=== PATIENT | female | born 1985 | race African-American/Black ===

== ENCOUNTER 2023-06-24 10:29 | Inpatient (IN) | payer OTHER ==
[~2023-06-24] VITALS: Ht 157.5 cm; Wt 119.0 kg
[2023-06-24] MEDS: CLINDAMYCIN 600MG IV 50 ML IV ONE (12:45)
[2023-06-24] MEDS: SODIUM CHLORIDE 0.9% 1,000 ML IV ONE (12:45)
[2023-06-24] MEDS: cefTRIAXone 1GM/50ML D5W 50 ML IV ONE (12:45)
[2023-06-24 13:25] LABS: Basophils # (auto) 0.1 10 ^3/uL (0-0.2); Eosinophils # (auto) 0.2 10 ^3/uL (0-0.8); Hemoglobin 8.5 g/dL (12.2-16.2); Lymphocytes # (auto) 2.3 10 ^3/uL (0.4-5.4); Mean Corpuscular Volume 68.2 fL (80.0-100.0); Nucleated Red Blood Cells % 0.1 %
[2023-06-24 13:27] LABS: Basophils % (auto) 0.7 % (0.0-2.0); Chloride 105 mmol/L (98-107); Eosinophils % (auto) 1.7 % (0.0-7.0); Hematocrit 27.9 % (36.0-46.0); Lymphocytes % (auto) 24.8 % (10.0-50.0); Mean Corpuscular Hemoglobin 20.7 pg (28.0-32.0); Mean Corpuscular Hgb Conc. 30.4 g/dL (32.0-36.0); Monocytes # (auto) 0.7 10 ^3/uL (0-1.3); Monocytes % (auto) 7.3 % (0.0-12.0); Neutrophils # (auto) 6.1 10 ^3/uL (1.6-8.6); Neutrophils % (auto) 65.5 % (37.0-80.0); Potassium 4.4 mmol/L (3.5-5.1); Red Blood Cells 4.09 10^6/uL (4.0-5.20); Red Cell Distribution Width 19.5 % (11.8-14.3); Sodium 136 mmol/L (136-145); White Blood Cell 9.3 10^3/uL (4.4-10.8)
[2023-06-24 13:28] LABS: Anion Gap 3 (5-15); Carbon Dioxide 28 mmol/L (20-30)
[2023-06-24 13:29] LABS: Calcium 9.7 mg/dL (8.5-10.1)
[2023-06-24 13:33] LABS: Glucose 109 mg/dL (74-106)
[2023-06-24 13:34] LABS: BUN/Creatinine Ratio 16.2 (10.0-20.0); Blood Urea Nitrogen 12 mg/dL (9-23)
[2023-06-24] MEDS: SODIUM CHLORIDE 0.9% 1,000 ML IV SCH (14:15)
[2023-06-24] MEDS ORDERED: ACETAMINOPHEN 325 MG TAB PO PRN (14:15)
[2023-06-24] MEDS ORDERED: IBUP-1455 PO (14:19)
[2023-06-24 15:18] LABS: Triglycerides 133 mg/dL (< 150)
[2023-06-24 15:19] LABS: LDL Cholesterol 93 mg/dL (< 100)
[2023-06-24 15:20] LABS: Cholesterol 142 mg/dL (< 200); HDL Cholesterol 34 mg/dL (40-59)
[2023-06-24 19:45] VITALS: PULSE 79; RESP 19; O2SAT 96
[2023-06-24] MEDS ORDERED: BACDST PO (22:28)
[2023-06-24] MEDS ORDERED: AUG875T PO (22:28)
[2023-06-24 22:29] VITALS: RESP 16
[2023-06-24] MEDS: CLINDAMYCIN 600MG IV 50 ML IV SCH (22:48)
[2023-06-24] MEDS: ASCORBIC ACID 500 MG TAB PO SCH (22:48)
[2023-06-24] MEDS: HYDROcodone-ACET 5/325MG TAB PO PRN (23:51)
[2023-06-25 01:00] VITALS: PULSE 77; RESP 18; TEMP 98.4; O2SAT 94
[2023-06-25 05:00] VITALS: BP 143/83; PULSE 70; RESP 16; TEMP 98.2; O2SAT 94
[2023-06-25 07:28] LABS: Eosinophils # (auto) 0.2 10 ^3/uL (0-0.8); Lymphocytes # (auto) 2.6 10 ^3/uL (0.4-5.4); Neutrophils # (auto) 5.1 10 ^3/uL (1.6-8.6); White Blood Cell 8.6 10^3/uL (4.4-10.8)
[2023-06-25 07:30] LABS: Basophils # (auto) 0 10 ^3/uL (0-0.2); Basophils % (auto) 0.5 % (0.0-2.0); Eosinophils % (auto) 2.2 % (0.0-7.0); Hematocrit 25.7 % (36.0-46.0); Hemoglobin 7.7 g/dL (12.2-16.2); Lymphocytes % (auto) 30.7 % (10.0-50.0); Mean Corpuscular Hemoglobin 20.6 pg (28.0-32.0); Mean Corpuscular Hgb Conc. 30.1 g/dL (32.0-36.0); Mean Corpuscular Volume 68.5 fL (80.0-100.0); Monocytes # (auto) 0.5 10 ^3/uL (0-1.3); Monocytes % (auto) 6.4 % (0.0-12.0); Neutrophils % (auto) 60.2 % (37.0-80.0); Red Blood Cells 3.76 10^6/uL (4.0-5.20); Red Cell Distribution Width 18.9 % (11.8-14.3)
[2023-06-25 07:43] LABS: Alkaline Phosphatase 87 U/L (46-116); Anion Gap 7 (5-15); BUN/Creatinine Ratio 18.7 (10.0-20.0); Blood Urea Nitrogen 14 mg/dL (9-23); Calcium 9.3 mg/dL (8.5-10.1); Carbon Dioxide 24 mmol/L (20-30); Chloride 106 mmol/L (98-107); Glucose 95 mg/dL (74-106); Potassium 4.2 mmol/L (3.5-5.1); Sodium 137 mmol/L (136-145)
[2023-06-25 07:44] LABS: Albumin 3.7 g/dL (3.2-4.8); Aspartate Aminotransferase 12 U/L (13-40); Bilirubin, Total 0.2 mg/dL (0.2-1.0); Total Protein 6.7 g/dL (5.7-8.2)
[2023-06-25 07:52] LABS: Alanine Aminotransferase < 9 U/L (7-40)
[2023-06-25 08:33] LABS: Hypochromia Marked; Platelet Estimate Increased
[2023-06-25 09:00] VITALS: BP 145/93; PULSE 69; RESP 18; TEMP 98.3; O2SAT 97
[2023-06-25] MEDS: cefTRIAXone 1GM/50ML D5W 50 ML IV SCH (09:49)
[2023-06-25] MEDS: ZINC SULFATE 220mg CAP or TAB PO SCH (09:49)
[2023-06-25] MEDS: MULTIPLE VITAMIN TAB PO SCH (09:49)
[2023-06-25] MEDS: ENOXAPARIN SOD 40 MG/0.4 ML SYRINGE SC SCH (09:49)
[2023-06-25 13:00] VITALS: BP 146/71; PULSE 70; RESP 18; TEMP 98; O2SAT 95
[2023-06-25 17:00] VITALS: BP 125/80; PULSE 70; RESP 18; TEMP 98.2; O2SAT 96
[2023-06-25 21:00] VITALS: BP 138/70; PULSE 76; RESP 18; TEMP 98.4; O2SAT 96
[2023-06-26 05:00] VITALS: BP 122/68; PULSE 67; RESP 18; TEMP 98.8; O2SAT 98
[2023-06-26 09:00] VITALS: BP 126/55; PULSE 71; RESP 16; TEMP 98; O2SAT 95
[2023-06-26] MEDS ORDERED: BACDST PO (12:25)
[2023-06-26 13:00] VITALS: BP 118/59; PULSE 86; RESP 16; TEMP 98.6; O2SAT 97
[2023-06-26 16:39] VITALS: BP 118/59; PULSE 91; RESP 16; TEMP 37; O2SAT 97
== END 2023-06-26 17:45 | disposition home or self-care (01) | DRG 383 ==
LOC: ER 10:29 → OVERFLOW 14:18 → WEST WING 22:05
PROVIDERS: ADMIT Internal Medicine Geriatric Medicine; ATTEND Internal Medicine Geriatric Medicine
DX: L03.311 Cellulitis of abdominal wall (principal); D50.9 Iron deficiency anemia, unspecified; E66.01 Morbid (severe) obesity due to excess calories; E11.9 Type 2 diabetes mellitus without complications; I10 Essential (primary) hypertension; L02.211 Cutaneous abscess of abdominal wall; L02.221 Furuncle of abdominal wall; Z79.4 Long term (current) use of insulin; Z68.42 Body mass index [BMI] 45.0-49.9, adult; Z82.49 Family history of ischemic heart disease and other diseases of the circulatory system
CPT/HCPCS: 36415; 80048; 80053; 80061; 83036; 83605; 84443; 85025; 87040; 87081; 87205; G0378; J3490

== ENCOUNTER 2023-07-29 11:10 | Emergency (ER) | payer OTHER ==
[~2023-07-29] VITALS: Ht 172.7 cm; Wt 122.3 kg
[~2023-07-29 11:10] MED LIST: BACDST PO; IBUP-1455 PO
[2023-07-29 12:30] VITALS: BP 154/93; PULSE 73; RESP 18; TEMP 98.7; O2SAT 98
[2023-07-29 13:36] LABS: Urine Bacteria None Seen /hpf (None Seen)
[2023-07-29 13:53] LABS: Chloride 108 mmol/L (98-107); Sodium 140 mmol/L (136-145)
[2023-07-29 13:54] LABS: Anion Gap 4 (5-15); Carbon Dioxide 28 mmol/L (20-30)
[2023-07-29 13:55] LABS: Calcium 9.3 mg/dL (8.5-10.1)
[2023-07-29 13:59] LABS: BUN/Creatinine Ratio 8.1 (10.0-20.0); Blood Urea Nitrogen 6 mg/dL (9-23); Glucose 101 mg/dL (74-106)
[2023-07-29 14:10] LABS: Vaginal Bacteria Few; Vaginal Clue Cells Few; Vaginal Epithelial Cells Few; Vaginal Trichomonas Not Present
[2023-07-29 14:11] LABS: Basophils # (auto) 0.1 10 ^3/uL (0-0.2); Basophils % (auto) 0.9 % (0.0-2.0); Lymphocytes # (auto) 1.7 10 ^3/uL (0.4-5.4); Monocytes # (auto) 0.4 10 ^3/uL (0-1.3)
[2023-07-29 14:13] LABS: Eosinophils # (auto) 0.2 10 ^3/uL (0-0.8); Eosinophils % (auto) 1.8 % (0.0-7.0); Hematocrit 29.5 % (36.0-46.0); Hemoglobin 8.9 g/dL (12.2-16.2); Lymphocytes % (auto) 17.7 % (10.0-50.0); Mean Corpuscular Hemoglobin 20.4 pg (28.0-32.0); Mean Corpuscular Hgb Conc. 30.1 g/dL (32.0-36.0); Mean Corpuscular Volume 67.9 fL (80.0-100.0); Monocytes % (auto) 3.8 % (0.0-12.0); Neutrophils # (auto) 7.2 10 ^3/uL (1.6-8.6); Neutrophils % (auto) 75.8 % (37.0-80.0); Red Blood Cells 4.34 10^6/uL (4.0-5.20); Red Cell Distribution Width 18.9 % (11.8-14.3); White Blood Cell 9.5 10^3/uL (4.4-10.8)
[2023-07-29 14:15] LABS: Urine Blood TRACE /uL (Negative); Urine Clarity Turbid (Clear); Urine Color Yellow (Yellow); Urine Hyaline Cast FEW /lpf (0 - 2); Urine Mucus FEW (None Seen); Urine Protein, UAD 2+ (Negative); Urine Specific Gravity 1.019 (1.001-1.035); Urine Urobilinogen Normal (Negative); Urine WBC 14 /hpf (0 - 5); Urine pH 6.5 (5.0-9.0)
[2023-07-29] MEDS ORDERED: NITR-87 PO (15:06)
[2023-07-29] MEDS ORDERED: FER325T PO (15:08)
[2023-07-30 07:07] LABS: RPR Non Reactive (Non Reactive)
[2023-07-31 03:06] LABS: Chlamydia Trachomatis, NAA Negative (Negative); Neisseria gonorrhoeae, NAA Negative (Negative)
== END 2023-07-29 15:08 | disposition home or self-care (01) ==
LOC: EDBD 11:10 → ER 11:10
DX: N39.0 Urinary tract infection, site not specified (principal)
CPT/HCPCS: 36415; 80048; 81001; 85025; 86592; 86703; 87210

== ENCOUNTER 2024-07-18 13:56 | Emergency (ER) | payer OTHER ==
[~2024-07-18] VITALS: Ht 157.5 cm; Wt 111.2 kg
[~2024-07-18 13:56] MED LIST changes: +FER325T PO; +NITR-87 PO
[2024-07-18 14:29] VITALS: BP 148/84; PULSE 76; RESP 16; TEMP 98.7; O2SAT 97
--- NOTE | 2024-07-18 14:46 | ED.PDOC ---
Musculoskeletal HPI Comments This is a 39-year-old female that comes in with right ankle pain. She states she was running last week and felt her ankle buckle. She is not sure why but she still has swelling she is able to walk on it. Denies any other injuries. Chief Complaint: Lower Extremity Time Seen by MD: 14:43 Primary Care Provider: Ton Mcwilliams Notes: Nurses Notes, Medications, Allergies Allergies: Coded Allergies: NO KNOWN ALLERGIES (Unverified , 05/05/23) Home Meds Active Scripts Ferrous Sulfate (FERROUS SULFATE) 325 Mg Tb, 1 TAB PO DAILY for 30 Days, #30 TAB 0 Refills Prov:GAVINO DICKSON SUPERVISOR [employer] 07/29/23 Nitrofurantoin Monohydrate Mac (Macrobid) 100 Mg Cap, 100 MG PO BID for 7 Days, #14 CAP 0 Refills Prov:GAVINO DICKSON SUPERVISOR [employer] 07/29/23 Sulfamethoxazole W/Trimethopri (Bactrim Ds Tablet) 1 Tab Tb, 1 TAB PO BID for 10 Days, #20 TAB Prov:GONSALO LÓPEZ MD 06/26/23 Reported Medications Sulfamethoxazole W/Trimethopri (Bactrim Ds Tablet) 1 Tab Tb, 1 TAB PO Q12HR 06/24/23 Ibuprofen Micronized (Ibuprofen) 800 Mg Tab, 1 TAB PO TID PRN 06/24/23 Information Source: Patient Mode of Arrival: Ambulatory Past Medical History PAST MEDICAL HISTORY: Anemia, Denies Surgical History: Denies all surgeries OUTPATIENT PHARMACY MANAGER History: Denies all OUTPATIENT PHARMACY MANAGER Hx Family History Family History: Reviewed,noncontributory to illness, Unknown Social History Smoker: Non-Smoker Alcohol: Denies ETOH Use Drugs: Denies Drug Use Lives In: Home Musculoskeletal: reports: joint pain, joint swelling, others (right ankle) All Other Systems: Reviewed and Negative Physical Exam General Appearance: No Apparent Distress, None, Normal HEENT: Normal ENT Inspection, PERRL/EOMI Neck: Full Range of Motion, Non-Tender, Normal Inspection, Supple Respiratory: Lungs Clear, Normal Breath Sounds Cardiovascular: Regular Rate/Rhythm Breast Exam: Deferred Gastrointestinal: Non Tender, Soft Genitalia: Deferred Pelvic: Deferred Rectal: Decreased tone Extremities: Swelling (right lateral malleolus), Tender Neurologic: Alert, No Motor Deficits, Normal Mood Cerebellar Function: NOT DONE Reflexes: NOT DONE Skin: Dry, Warm Lymphatic: No Adenopathy Was a procedure done? Was a procedure done?: No Differential Diagnosis EXT Differential Diagnosis: Cellulitis, Sprain X-Ray, Labs, Meds, VS Vital Signs Date Time Temp Pulse Resp B/P (MAP) Pulse Ox O2 Delivery O2 Flow Rate FiO2 07/18/24 14:29 76 16 97 Room Air 07/18/24 14:29 98.7 76 16 148/84 (105) 97 98.7 07/18/24 14:11 98.7 76 16 148/84 (105) 97 98.7 X-Ray, Labs, Meds, VS Comment Patient seen and examined by me. Patient has had pain in her right ankle for approximately 1 week. She does have a area that is could be potentially a fracture versus a calcification. Patient is able to walk without difficulty we will put her in an Jc wrap and offered crutches. She also be sent home on anti-inflammatories. Patient was told to limit activity and follow up outpatient with her regular doctor. ORDERING PHYSICIAN: BRITTNI CRANE ROAD MANAGER PROCEDURE(s): RANKL - R ANKLE 3 VIEW REASON: Injury last week ORDER NUMBER(s): [id number], ACCESSION NUMBER(s): [id number] CLINICAL INDICATION: Injury last week TECHNIQUE: 3 views of the right ankle XY R ANKLE 3 VIEW Comparison: None FINDINGS/IMPRESSION: 1 mm calcification adjacent to the distal fibula, nonspecific. A tiny age- indeterminate avulsion injury can not be excluded although there is no obvious donor site and no appreciable overlying swelling. Alignment is normal. Small plantar calcaneal spur. Ankle mortise is unremarkable. Time of 1ST Reevaluation: 15:27 Reevaluation 1ST: Improved Patient Education/Counseling: Diagnosis, Treatment, Prognosis, Need For Follow Up Family Education/Counseling: No Family Present Departure 1 Departure Time of Disposition: 15:27 Impression: Primary Impression: Ankle fracture, right Disposition: 01 HOME / SELF CARE / HOMELESS Condition: Good Additional Instructions: Please use the Jc wrap at all times until you follow-up with your regular doctor A copy of the x-ray when you see your regular doctor I would limit running or any heavy duty physical activity until you are cleared by him Take the anti-inflammatories as directed for pain and swelling. e-Prescriptions Ibuprofen Micronized (Ibuprofen) 600 Mg Tab 600 MG PO Q6HPRN PRN for 5 Days, #20 TAB Prov: BRITTNI CRANE 07/18/24 Discharged With: Self Critical Care Note Critical Care Time?: No Stability Stability form required: BRITTNI Mims Jul 18, 2024 14:46
--- NOTE | 2024-07-18 15:06 | DVH ---
CLINICAL INDICATION: Injury last week TECHNIQUE: 3 views of the right ankle XY R ANKLE 3 VIEW Comparison: None FINDINGS/IMPRESSION: 1 mm calcification adjacent to the distal fibula, nonspecific. A tiny age-indeterminate avulsion inju ry can not be excluded although there is no obvious donor site and no appreciable overlying swelling. Alignment is normal. Small plantar calcaneal spur. Ankle mortise is unremarkable.
[2024-07-18] MEDS ORDERED: IBUP1TAB5 PO (15:28)
[2024-07-18] MEDS: KETOROLAC TROMETH 60MG/2ML VIAL IM ONE (15:53)
== END 2024-07-18 16:02 | disposition home or self-care (01) ==
LOC: ER 14:14
DX: S82.891A Other fracture of right lower leg, initial encounter for closed fracture (principal); X58.XXXA Exposure to other specified factors, initial encounter; Y93.89 Activity, other specified; Y92.89 Other specified places as the place of occurrence of the external cause; Y99.8 Other external cause status
CPT/HCPCS: 73610; 96372; 99283; J1885

== ENCOUNTER 2024-07-28 14:52 | Emergency (ER) | payer OTHER ==
[~2024-07-28] VITALS: Ht 157.5 cm; Wt 109.5 kg
[~2024-07-28 14:52] MED LIST changes: +IBUP1TAB5 PO
[2024-07-28 16:08] VITALS: BP 129/63; PULSE 76; RESP 17; TEMP 97.6; O2SAT 96
--- NOTE | 2024-07-28 16:49 | DVH ---
Indication: R/o R ankle fracture Technique: 3 views right ankle Comparison: None FINDINGS/IMPRESSION: 2 mm ossific fragment near the fibular tip/ lateral malleolus with lateral malleolar soft tissue steve a, likely representing a small chip fracture.
--- NOTE | 2024-07-28 17:21 | ED.PDOC ---
Musculoskeletal HPI Comments A 39 year old female with a past medical history of anemia presents to the emergency department with a chief complaint of RT ankle pain onset 10 days. Patient was seen in this ED on 07/18/24 s/p twisting of RT ankle, XR was done, pain medication was prescribed. Patient states pain medication is not improving symptoms, returned to ED due to persistent RT ankle pain. No other symptoms or modifying factors present at this time. Denies previous surgeries to the ankle Denies redness around the ankle Denies fever chills night sweats nausea vomiting Denies dizziness head injury LOC Chief Complaint: Lower Extremity Time Seen by MD: 17:10 Primary Care Provider: Ton Mcwilliams Notes: Medications, Allergies Allergies: Coded Allergies: NO KNOWN ALLERGIES (Unverified , 05/05/23) Home Meds Active Scripts Ibuprofen Micronized (Ibuprofen) 600 Mg Tab, 600 MG PO Q6HPRN PRN for 5 Days, #20 TAB Prov:BRITTNI CRANE SUPERVISING [employer]F 07/18/24 Ferrous Sulfate (FERROUS SULFATE) 325 Mg Tb, 1 TAB PO DAILY for 30 Days, #30 TAB 0 Refills Prov:GAVINO DICKSON NP 07/29/23 Nitrofurantoin Monohydrate Mac (Macrobid) 100 Mg Cap, 100 MG PO BID for 7 Days, #14 CAP 0 Refills Prov:GAVINO DICKSON NP 07/29/23 Sulfamethoxazole W/Trimethopri (Bactrim Ds Tablet) 1 Tab Tb, 1 TAB PO BID for 10 Days, #20 TAB Prov:GONSALO LÓPEZ MD 06/26/23 Reported Medications Sulfamethoxazole W/Trimethopri (Bactrim Ds Tablet) 1 Tab Tb, 1 TAB PO Q12HR 06/24/23 Ibuprofen Micronized (Ibuprofen) 800 Mg Tab, 1 TAB PO TID PRN 06/24/23 Information Source: Patient Mode of Arrival: Ambulatory Location: Right Extremity Location: Ankle Timing: Weeks Prehospital treatment: None Severity: Moderate Able to Move Extremity: Yes Bear Weight: Limited Pain: Moderate Mechanism: Twisting Circumstances: Fall Onset of Symptoms: After Trauma Symptoms: Swelling, Pain DVT Risk Factors: NONE Associated signs and symptoms: Ankle pain Past Medical History PAST MEDICAL HISTORY: Anemia Surgical History: Denies all surgeries IT TRAINEE History: Denies all IT TRAINEE Hx Family History Family History: Reviewed,noncontributory to illness, Unknown Social History Smoker: Non-Smoker Alcohol: Denies ETOH Use Drugs: Denies Drug Use Lives In: Home All Other Systems: Reviewed and Negative (as per HPI) Physical Exam General Appearance: No Apparent Distress, Normal HEENT: Normal ENT Inspection, Pharynx Normal, TMs Normal Neck: Full Range of Motion, Non-Tender, Normal, Normal Inspection Respiratory: Chest Non-Tender, Lungs Clear, No Accessory Muscle Use, No Respiratory Distress, Normal Breath Sounds Cardiovascular: No Edema, No JVD, No Murmur, No Gallop, Normal Peripheral Pulse s, Regular Rate/Rhythm Breast Exam: Deferred Gastrointestinal: No Organomegaly, Non Tender, No Pulsatile Mass, Normal Bowel Sounds, Soft Genitalia: Deferred Pelvic: Deferred Rectal: Deferred Extremities: No calf tenderness, Normal capillary refill, Normal inspection, Normal range of motion, Non-tender, No pedal edema Musculoskeletal : Location: Right Extremity Location: Ankle (no bony step offs, full ROM but there is pain with foward flexion, extension, no echymosis, no soft tissue sweling or open wounds noted, dorsi/platnar flexion strong, TTP to the medial malleolus, no pain to achilles or lower extensor retinaculum. cap refill less than 3 seconds, nerual vascular intact ) Apperance: Normal Neurologic: Alert, lead miner blasting II-XII nml as Tested, No Motor Deficits, Normal Affect, Normal Mood, No Sensory Deficits Cerebellar Function: Normal Reflexes: Normal Skin: Dry, Normal Color, Warm Lymphatic: No Adenopathy Was a procedure done? Was a procedure done?: No X-Ray, Labs, Meds, VS Vital Signs Date Time Temp Pulse Resp B/P (MAP) Pulse Ox O2 Delivery O2 Flow Rate FiO2 07/28/24 16:08 76 17 96 Room Air 07/28/24 16:08 97.6 76 17 129/63 (85) 96 97.6 07/28/24 15:17 97.6 73 16 129/63 (85) 96 97.6 Lab Test 07/28/24 15:21 Range/Units POC Glucose 116 H 70-106 mg/dl X-Ray, Labs, Meds, VS Comment A 39 year old female with a past medical history of anemia presents to the emergency department with a chief complaint of RT ankle pain onset 10 days. Patient arrives alert and oriented, ABC's intact, afebrile, vital signs stable, saturating well in room air Additional MDM Review of External, Non-ED records: External records reviewed. Discussion with independent historian (EMS, family) history obtained from the patient/parents (if applicable) at bedside Chronic conditions affecting care: anemia Social determinants of health affecting care: None Consideration of admission (observation or admission): I considered escalation of care to admission for this patient, however given the reassuring workup, the patient is safe for outpatient management. Discussion with the Radiology: No Time of 1ST Reevaluation: 17:40 Reevaluation 1ST: Improved Patient Education/Counseling: Diagnosis, Treatment Family Education/Counseling: No Family Present Departure 1 Departure Time of Disposition: 17:23 Impression: Primary Impression: Tibial fracture Qualified Codes: S82.301S - Unspecified fracture of lower end of right tibia, sequela Disposition: HOME / SELF CARE / HOMELESS Condition: Stable e-Prescriptions Tramadol HCl (Tramadol HCl) 50 Mg Tab 50 MG PO Q8HP PRN for 2 Days, #6 TAB 0 Refills Prov: GAVINO DICKSON NP 07/28/24 Critical Care Note Critical Care Time?: No Stability Stability form required: No Heart Score Heart Score: Heart Score Response (Comments) Value History N/A 0 EKG N/A 0 Age N/A 0 Risk Factors N/A 0 Troponin N/A 0 Total 0 I personally scribed for GAVINO DICKSON NP ([email or web address]) on 07/28/24 at 17:21. Electronically submitted by Gretchen Mc ([email or web address]). GAVINO DICKSON NP Jul 28, 2024 17:21
[2024-07-28] MEDS ORDERED: TRAM-626 PO (17:24)
== END 2024-07-28 17:25 | disposition home or self-care (01) ==
LOC: ER 14:52
DX: S82.61XA Displaced fracture of lateral malleolus of right fibula, initial encounter for closed fracture (principal); Z79.899 Other long term (current) drug therapy; X50.1XXA Overexertion from prolonged static or awkward postures, initial encounter; Y93.89 Activity, other specified; Y92.89 Other specified places as the place of occurrence of the external cause; Y99.8 Other external cause status
CPT/HCPCS: 73610; 82947; 82962

== ENCOUNTER 2025-01-20 10:27 | Inpatient (IN) | payer MEDICAID, OTHER ==
[~2025-01-20] VITALS: Ht 157.5 cm; Wt 115.0 kg
[~2025-01-20 10:27] MED LIST changes: +TRAM-626 PO
--- NOTE | 2025-01-20 11:00 | ED.PDOC ---
General HPI Comments This is a 39 year old female presenting to the ED with chief complaint of flank pain. Patient reports that she has been experiencing 10/10 bilateral flank pain with associated RUQ abdominal pain and nausea since this morning. Patient relays that she has history of both gallstones and kidney stones. Patient admits to methamphetamine use last month. Patient denies any chest pain, SOB, fever, chills, dysuria, hematuria, vomiting, or diarrhea. Chief Complaint: Flank Pain Time Seen by MD: 10:58 Primary Care Provider: Ton Mcwilliams notes: Nurses Notes, Medications, Allergies Allergies: Coded Allergies: NO KNOWN ALLERGIES (Unverified , 05/05/23) Home Meds Active Scripts Tramadol HCl (Tramadol HCl) 50 Mg Tab, 50 MG PO Q8HP PRN for 2 Days, #6 TAB 0 Refills Prov:GAVINO DICKSON PSYCH NP 07/28/24 Ibuprofen Micronized (Ibuprofen) 600 Mg Tab, 600 MG PO Q6HPRN PRN for 5 Days, #20 TAB Prov:BRITTNI CRANE MASTERCAM PROGRAMMER 07/18/24 Ferrous Sulfate (FERROUS SULFATE) 325 Mg Tb, 1 TAB PO DAILY for 30 Days, #30 TAB 0 Refills Prov:GAVINO DICKSON PSYCH NP 07/29/23 Nitrofurantoin Monohydrate Mac (Macrobid) 100 Mg Cap, 100 MG PO BID for 7 Days, #14 CAP 0 Refills Prov:GAVINO DICKSON PSYCH NP 07/29/23 Sulfamethoxazole W/Trimethopri (Bactrim Ds Tablet) 1 Tab Tb, 1 TAB PO BID for 10 Days, #20 TAB Prov:GONSALO LÓPEZ MD 06/26/23 Reported Medications Sulfamethoxazole W/Trimethopri (Bactrim Ds Tablet) 1 Tab Tb, 1 TAB PO Q12HR 06/24/23 Ibuprofen Micronized (Ibuprofen) 800 Mg Tab, 1 TAB PO TID PRN 06/24/23 Information Source: Patient Mode of Arrival: Ambulatory Severity: Moderate Timing: Hours Duration: Since onset Prehospital treatment: None Onset: Spontaneous History of: Kidney stone Location: Abdomen, (R) Flank, (L)Flank associated signs and symptoms: Abdominal Pain, Flank Pain Past Medical History PAST MEDICAL HISTORY: Anemia, Gallstones, Kidney Stones Surgical History: Denies all surgeries SHAPER AND PRESSER History: Denies all SHAPER AND PRESSER Hx Family History Family History: Reviewed,noncontributory to illness, Family hx of DM Social History Smoker: Non-Smoker Alcohol: Denies ETOH Use Drugs: Methamphetamine Lives In: Home Constitutional: denies: chills, diaphoresis, fatigue, fever, malaise, sweats, weakness, others EENTM: denies: blurred vision, double vision, ear bleeding, ear discharge, ear drainage, ear pain, ear ringing, eye pain, eye redness, hearing loss, mouth pain, mouth swelling, nasal discharge, nose bleeding, nose congestion, nose p ain, photophobia, tearing, throat pain, throat swelling, voice changes, others Respiratory: denies: cough, hemoptysis, orthopnea, SOB at rest, shortness of breath, SOB with excertion, stridor, wheezing, others Cardiovascular: denies: chest pain, dizzy spells, diaphoresis, Dyspnea on exertion, edema, irregular heart beat, left arm pain, lightheadedness, palpitations, PND, syncope, others Gastrointestinal: reports: abdominal pain; denies: abdomen distended, blood streaked bowels, constipated, diarrhea, dysphagia, difficulty swallowing, hematemesis, melena, nausea, poor appetite, poor fluid intake, rectal bleeding, rectal pain, vomiting, others Genitourinary: reports: flank pain; denies: abnormal vagina bleeding, burning, dyspareunia, dysuria, frequency, hematuria, incontinence, pain, , vagina discharge, urgency, others Neurological: denies: dizziness, fainting, headache, left sided numbness, left sided weakness, numbness, paresthesia, pre-existing deficit, right sided numbness, right sided weakness, seizure, speech problems, tingling, tremors, weakness, others Musculoskeletal: denies: back pain, gout, joint pain, joint swelling, muscle pain, muscle stiffness, neck pain, others Integumetry: denies: bruises, change in color, change in hair/nails, dryness, laceration, lesions, lumps, rash, wounds, others Allergic/Immunocompromised: denies: Difficulty Healing, Frequent Infections, Hives, Itching, others Hematologic/Lymphatic: denies: anemia, blood clots, easy bleeding, easy bruising, swollen glands, others Endocrine: denies: excessive hunger, excessive sweating, excessive thirst, excessive urination, flushing, intolerance to cold, intolerance to heat, unexplained weight gain, unexplained weight loss, others Psychiatric: denies: anxiety, bipolar disorder, depression, hopeless, panic disorder, schizophrenia, sleepless, suicidal, others All Other Systems: Reviewed and Negative Physical Exam General Appearance: Moderate Distress, Obese HEENT: Normal ENT Inspection, Pharynx Normal, TMs Normal Neck: Full Range of Motion, Non-Tender, Normal, Normal Inspection Respiratory: Chest Non-Tender, Lungs Clear, No Accessory Muscle Use, No Respiratory Distress, Normal Breath Sounds Cardiovascular: No Edema, No JVD, No Murmur, No Gallop, Normal Peripheral Pulses, Regular Rate/Rhythm Breast Exam: Deferred Gastrointestinal: Epigastric, No Organomegaly, No Pulsatile Mass, Normal Bowel Sounds, Soft, Tenderness Genitalia: Deferred Pelvic: Deferred Rectal: Deferred Extremities: No calf tenderness, Normal capillary refill, Normal inspection, Normal range of motion, Non-tender, No pedal edema Musculoskeletal : Apperance: Normal Neurologic: Alert, lunchroom supervisor II-XII nml as Tested, Motor Weakness, Normal Affect, Normal Mood, No Sensory Deficits Cerebellar Function: Normal Reflexes: Normal Skin: Dry, Normal Color, Warm Lymphatic: No Adenopathy Was a procedure done? Was a procedure done?: No Differential Diagnosis Kidney stone (Female): Cholelithiasis, Pancreatitis, Urolithiasis Other Differential Diagnosis Gallstones, Cholecystitis X-Ray, Labs, Meds, VS Vital Signs Date Time Temp Pulse Resp B/P (MAP) Pulse Ox O2 Delivery O2 Flow Rate FiO2 01/20/25 13:39 79 18 132/77 01/20/25 13:09 78 17 119/64 01/20/25 13:01 97.8 79 17 119/64 (82) 100 97.8 01/20/25 12:10 98 100 Room Air* 0 21 01/20/25 11:06 117 20 131/111 (118) 100 01/20/25 10:30 98.0 112 18 124/72 96 98.0 Lab Test 01/20/25 13:19 01/20/25 12:52 01/20/25 11:10 Range/Units Urine Color Pending Urine Clarity Pending Urine pH Pending Urine Specific [place] Pending Urine Protein Pending Urine Ketones Pending Urine Blood Pending Urine Nitrite Pending Urine Bilirubin Pending Urine Urobilinogen Pending Urine Leukocyte Esterase Pending Urine RBC Pending Urine Microscopic WBC Pending Urine Squamous Epithelial Cells Pending Urine Bacteria Pending Urine Glucose Pending Urine Test Negative Negative Urine Opiates Screen Neg NEGATIVE Urine Fentanyl Screen Neg NEGATIVE Urine Barbiturates Screen Neg NEGATIVE Urine Phencyclidine Screen Neg NEGATIVE Urine Amphetamines Screen Pos NEGATIVE Urine Benzodiazepines Screen Neg NEGATIVE Urine Cocaine Screen Neg NEGATIVE Urine Cannabinoids Screen Pos NEGATIVE White Blood Count 12.6 H 4.4-10.8 10^3/uL Red Blood Count 4.93 4.0-5.20 10^6/uL Hemoglobin 9.5 L 12.2-16.2 g/dL Hematocrit 31.6 L 36.0-46.0 % Mean Corpuscular Volume 64.1 L 80.0-100.0 fL Mean Corpuscular Hemoglobin 19.2 L 28.0-32.0 pg Mean Corpuscular Hemoglobin Concent 30.0 L 32.0-36.0 g/dL Red Cell Distribution Width 19.6 H 11.8-14.3 % Platelet Count 669 H 140-450 10^3/uL Mean Platelet Volume 7.2 6.9-10.8 fL Neutrophils (%) (Auto) 74.4 37.0-80.0 % Lymphocytes (%) (Auto) 17.7 10.0-50.0 % Monocytes (%) (Auto) 6.4 0.0-12.0 % Eosinophils (%) (Auto) 0.8 0.0-7.0 % Basophils (%) (Auto) 0.7 0.0-2.0 % Neutrophils # (Auto) 9.4 H 1.6-8.6 10 ^3/uL Lymphocytes # (Auto) 2.2 0.4-5.4 10 ^3/uL Monocytes # (Auto) 0.8 0-1.3 10 ^3/uL Eosinophils # (Auto) 0.1 0-0.8 10 ^3/uL Basophils # (Auto) 0.1 0-0.2 10 ^3/uL Nucleated Red Blood Cells 0.1 % Platelet Estimate Increased Hypochromasia (manual) Moderate Microcytosis Moderate Sodium Level 137 136-145 mmol/L Potassium Level 3.6 3.5-5.1 mmol/L Chloride Level 103 98-107 mmol/L Carbon Dioxide Level 23 20-31 mmol/L Anion Gap 11 5-15 Blood Urea Nitrogen 13 9-23 mg/dL Creatinine 1.03 H 0.550-1.02 mg/dL Glomerular Filtration Rate Calc 70 >90 mL/min BUN/Creatinine Ratio 12.6 10.0-20.0 Serum Glucose 106 74-106 mg/dL Calcium Level 9.4 8.7-10.4 mg/dL Total Bilirubin 0.7 0.2-1.0 mg/dL Aspartate Amino Transferase (AST) 14 13-40 U/L Alanine Aminotransferase (ALT) < 9 7-40 U/L Alkaline Phosphatase 107 46-116 U/L Total Protein 8.4 H 5.7-8.2 g/dL Albumin 4.6 3.2-4.8 g/dL Lipase 32 12-53 U/L Current Medications Medications (Trade) Dose Ordered Sig/Valerie Route Start Time Stop Time Status Last Admin Ondansetron HCl (Zofran) 4 mg ONCE ONCE IV 01/20/25 11:15 01/20/25 11:16 DC 01/20/25 11:58 Sodium Chloride 1,000 ml @ 1,000 mls/hr Q1H ONCE IVB 01/20/25 11:15 01/20/25 12:14 DC 01/20/25 11:15 Morphine Sulfate 4 mg ONCE ONCE IV 01/20/25 11:15 01/20/25 11:16 DC 01/20/25 13:09 IV Hep-Lock was established. The patient's CBC shows an elevated white blood cell count of 12.6 The chemistry panel is within normal limits except for an elevated creatinine of 1.03 The lipase and liver enzymes otherwise are negative The patient was given morphine 4 mg IV push for the pain The patient was given Zofran 4 mg IV push for the nausea The patient was given a 1 L bolus of normal saline The urine tox is positive for methamphetamines as well as marijuana The patient is being admitted at this time The patient understands and agrees with the management. Images Reviewed?: Images reviewed and evaluated by me Time of 1ST Reevaluation: 15:33 Reevaluation 1ST: Unchanged Patient Education/Counseling: Diagnosis, Treatment, Prognosis Family Education/Counseling: No Family Present SEPSIS Sepsis Screen Date sepsis recognized/suspect: Jan 20, 2025 Time Sepsis recognized/suspect: 103 Recent Procedure: No Respiratory Rate >20: No Heart Rate >90: Yes Temp<36 C (96.8 F) or >38.3 C: No SBP <90 or MAP <65 mmHG: No New Acute Mental Status Change: No Is the patient on CPAP, BIPAP,: No Physician Orders Urinalysis (01/20/25 11:02) Ct Ab Pel Wo Con-No Oral Or Iv (01/20/25 11:02) Heplock Iv (01/20/25 11:02) Vital Signs Date Time Temp Pulse Resp B/P (MAP) Pulse Ox O2 Delivery O2 Flow Rate FiO2 01/20/25 13:39 79 18 132/77 01/20/25 13:09 78 17 119/64 01/20/25 13:01 97.8 79 17 119/64 (82) 100 97.8 01/20/25 12:10 98 100 Room Air* 0 21 01/20/25 11:06 117 20 131/111 (118) 100 01/20/25 10:30 98.0 112 18 124/72 96 98.0 Laboratory Tests Test 01/20/25 11:10 White Blood Count 12.6 10^3/uL (4.4-10.8) H Medications Medications Dose Ordered Sig/Valerie Route Start Time Stop Time Status Last Admin Dose Admin Morphine Sulfate 4 mg ONCE ONCE IV 01/20/25 11:15 01/20/25 11:16 DC 01/20/25 13:09 Ondansetron HCl 4 mg ONCE ONCE IV 01/20/25 11:15 01/20/25 11:16 DC 01/20/25 11:58 Sodium Chloride 1,000 ml @ 1,000 mls/hr Q1H ONCE IVB 01/20/25 11:15 01/20/25 12:14 DC 01/20/25 11:15 Departure 1 Departure Time of Disposition: 15:33 Impression: Primary Impression: Intractable abdominal pain Additional Impression: Cholelithiasis Qualified Codes: K80.00 - Calculus of gallbladder with acute cholecystitis without obstruction Disposition: ADMITTED INPATIENT Admit to: Med Surg Condition: Fair Critical Care Note Critical Care Time?: Yes (45 min-critical care time only) Stability Stability form required: Yes Unstable for transfer: ED Physician Assesment (Clinical assesment) Heart Score Heart Score: Heart Score Response (Comments) Value History N/A 0 EKG N/A 0 Age N/A 0 Risk Factors N/A 0 Troponin N/A 0 Total 0 I personally scribed for INOCENCIA GONZALES MD ([email or web address]) on 01/20/25 at 11:00. Electronically submitted by Michael Cotton ([email or web address]). INOCENCIA GONZALES MD Jan 20, 2025 11:00
[2025-01-20] MEDS: SODIUM CHLORIDE 0.9% 1,000 ML IVB ONE (11:15)
[2025-01-20 11:30] LABS: Hematocrit 31.6 % (36.0-46.0); Hemoglobin 9.5 g/dL (12.2-16.2); Mean Corpuscular Hemoglobin 19.2 pg (28.0-32.0); Mean Corpuscular Volume 64.1 fL (80.0-100.0); Nucleated Red Blood Cells % 0.1 %
[2025-01-20 11:50] LABS: Albumin 4.6 g/dL (3.2-4.8); Alkaline Phosphatase 107 U/L (46-116); Anion Gap 11 (5-15); BUN/Creatinine Ratio 12.6 (10.0-20.0); Bilirubin, Total 0.7 mg/dL (0.2-1.0); Blood Urea Nitrogen 13 mg/dL (9-23); Calcium 9.4 mg/dL (8.7-10.4); Carbon Dioxide 23 mmol/L (20-31); Chloride 103 mmol/L (98-107); Lipase 32 U/L (12-53); Potassium 3.6 mmol/L (3.5-5.1); Sodium 137 mmol/L (136-145)
[2025-01-20] MEDS: ONDANSETRON HCL 4 MG/2 ML VIAL IV ONE (11:58)
[2025-01-20 12:05] LABS: Alanine Aminotransferase < 9 U/L (7-40); Glucose 106 mg/dL (74-106); Total Protein 8.4 g/dL (5.7-8.2)
[2025-01-20] MEDS: MORPHINE SULFATE 4 MG/ML SYR/VIAL IV ONE (12:05)
[2025-01-20 12:10] VITALS: PULSE 98; O2SAT 100
[2025-01-20 13:19] LABS: Cannabinoid Screen, Urine Pos (NEGATIVE)
[2025-01-20 13:23] LABS: Amphetamine Screen, Urine Pos (NEGATIVE); Barbiturate Scree,Urine Neg (NEGATIVE); Benzodiazephine Screen, Urine Neg (NEGATIVE); Cocaine Screen, Urine Neg (NEGATIVE); Opiate Scree,Urine Neg (NEGATIVE); Phencyclidine Screen, Urine Neg (NEGATIVE)
--- NOTE | 2025-01-20 14:48 | DVH ---
Indication: pain Technique: CT axial images of the abdomen and pelvis are obtained without contrast. Coronal and sagittal reformats were obtained. Radiation Dose Information: CTDI volume is 25.18 mGy. Dose-length product is 1570.68 mGy*cm Comparison: CT ABD/PEL on DOS: 04/01/24 FINDINGS: There is limited interpretation of the abdomen and pelvis without administration of intravenous contrast. Lung bases demonstrate no pleural effusion. Adrenal glands, spleen, pancreas, liver unremarkable in shape. Cholelithiasis. Mild pericholecystic stranding and gallbladder wall thickening. No hydronephrosis/ nephrolithiasis. Stomach is partially distended. Small bowel loops are normal in caliber. Colonic diverticular disease. Moderate volume stool throughout the colon. Normal appendix. Bladder partially distended. No free pelvic fluid. No inguinal lymphadenopathy. No aggressive osseous process. IMPRESSION: Limited evaluation without contrast. Cholelithiasis with mild pericholecystic stranding/ gallbladder wall thickening. Recommend HIDA scan to evaluate for cholecystitis. Colonic diverticular disease. Other findings as described.
[2025-01-20] MEDS ORDERED: DOCUSATE SOD 100 MG CAP PO PRN (17:15)
[2025-01-20] MEDS ORDERED: ONDANSETRON HCL 4 MG/2 ML VIAL IV PRN (17:15)
[2025-01-20] MEDS ORDERED: MORPHINE SULFATE INJ 2 MG/ml SYRG IV PRN ×2 (17:15)
[2025-01-20] MEDS ORDERED: NITROGLYCERIN 0.4 MG SL TAB SL PRN (17:15)
[2025-01-20] MEDS ORDERED: ACETAMINOPHEN 325 MG TAB PO PRN (17:15)
[2025-01-20] MEDS ORDERED: TEMAZEPAM 15 MG CAP PO PRN (17:15)
--- NOTE | 2025-01-20 17:19 | DVHHP2 ---
Admitting Diagnosis: Abdominal pain History of Present Illness 39 y/o female patient with a history of methamphetamine abuse presents with c/o intractable abdominal pain. CT imaging shows cholelithiasis with possible acute cholecystitis. GI consulted. Patient needs HIDA scan to rule out acute cholecystitis. If HIDA scan is positive, will need surgical evaluation. Patient to be started on clear liquid diet. While in the emergency department the patient was evaluated by the provider, As per provider: Labs, vital signs, and imagining monitored. Patient will be admitted for further evaluation and treatment. I discussed admission with the patient/family and is in agreement to treatment plan. Patient Family History: Diabetes mellitus G8 MOTHER Hypertension G8 MOTHER Allergies: Coded Allergies: NO KNOWN ALLERGIES (Unverified , 05/05/23) Home Meds Active Scripts Tramadol HCl (Tramadol HCl) 50 Mg Tab, 50 MG PO Q8HP PRN for 2 Days, #6 TAB 0 Refills Prov:GAVINO DICKSON SKETCH LINER 07/28/24 Ibuprofen Micronized (Ibuprofen) 600 Mg Tab, 600 MG PO Q6HPRN PRN for 5 Days, #20 TAB Prov:BRITTNI CRANE SUPPLY MANAGER 07/18/24 Ferrous Sulfate (FERROUS SULFATE) 325 Mg Tb, 1 TAB PO DAILY for 30 Days, #30 TAB 0 Refills Prov:GAVINO DICKSON SKETCH LINER 07/29/23 Nitrofurantoin Monohydrate Mac (Macrobid) 100 Mg Cap, 100 MG PO BID for 7 Days, #14 CAP 0 Refills Prov:GAVINO DICKSON NP 07/29/23 Sulfamethoxazole W/Trimethopri (Bactrim Ds Tablet) 1 Tab Tb, 1 TAB PO BID for 10 Days, #20 TAB Prov:GONSALO LÓPEZ MD 06/26/23 Reported Medications Sulfamethoxazole W/Trimethopri (Bactrim Ds Tablet) 1 Tab Tb, 1 TAB PO Q12HR 06/24/23 Ibuprofen Micronized (Ibuprofen) 800 Mg Tab, 1 TAB PO TID PRN 06/24/23 Current Medications Current Medications Medications (Trade) Dose Ordered Sig/Valerie Route PRN Reason Start Time Stop Time Status Last Admin Acetaminophen/ Hydrocodone Bitart ([place] 5/325MG Tab) 1 tab Q4HP PRN PO MODERATE PAIN (4-6 PAIN SCALE) 01/20/25 17:15 Temazepam (Restoril) 15 mg QHSP PRN PO FOR INSOMNIA 01/20/25 17:15 Ondansetron HCl (Zofran) 4 mg Q4HP PRN IV NAUSEA / VOMITING 01/20/25 17:15 Docusate Sodium (Colace Capsule) 100 mg BIDPRN PRN PO FOR CONSTIPATION 01/20/25 17:15 Enoxaparin Sodium (Lovenox) 40 mg DAILY SC 01/21/25 10:00 Acetaminophen (Tylenol Tablet) 650 mg Q6HP PRN PO PAIN SCALE 1-3 OR TEMP>100.4 01/20/25 17:15 Morphine Sulfate 2 mg Q4HPRN PRN IV SEVERE PAIN (7-10 PAIN SCALE) 01/20/25 17:15 Nitroglycerin (Ntrostat Sublingual) 0.4 mg Q5MINP PRN SL FOR CHEST PAIN 01/20/25 17:15 Morphine Sulfate 2 mg Q30M PRN IV FOR CHEST PAIN 01/20/25 17:15 Pantoprazole Sodium (Protonix) 40 mg DAILY IV 01/21/25 10:00 Piperacillin Sod/ Tazobactam Sod 100 ml @ 100 mls/hr TID IV 01/20/25 22:00 Review of Systems Constitutional: denies chills, denies fever, denies malaise Eyes: denies eye pain, denies vision change ENT: denies ear pain, denies headache, denies nasal congestion, denies painful swallowing, denies voice change Cardiovascular: denies chest pain, denies edema, denies orthopnea, denies palpitations, denies paroxysmal nocturnal dyspnea Respiratory: denies cough, denies shortness of breath Gastrointestinal: denies constipation, denies diarrhea, denies nausea, denies vomiting, positive for abdominal pain Genitourinary: denies dysuria, denies frequent urination, denies urethral discharge Musculoskeletal: denies back pain, denies joint pain, denies muscle pain Skin: denies bruising, denies itching, denies rash Neurological: denies focal weakness, denies headache, denies sensory changes Psychiatric: denies anxiety, denies depression Endocrine: denies polydipsia, denies polyuria Hematologic/Lymphatic: denies easy bleeding, denies easy bruising, denies enlarged lymph nodes Allergic/Immunologic: denies allergy, denies hives Vital Signs Vital Signs Date Time Temp Pulse Resp B/P (MAP) Pulse Ox O2 Delivery O2 Flow Rate FiO2 01/20/25 20:12 97.9 90 20 121/59 (79) 99 97.9 01/20/25 12:10 Room Air* 0 21 Physical Exam General Appearance: alert, no distress HEENT: EOMI, PERRLA, normal external inspect of ears, no icterus, no nasal drainage Neck: no carotid bruit, no jugular venous distention (JVD), no lymphadenopathy Chest: normal thorax Respiratory: clear to auscultation, normal air movement Cardiovascular: regular rate and rhythm, no diastolic murmur, no jugular venous distention (JVD), no rub, no systolic murmur Abdominal: no hepatomegaly, no mass, no splenomegaly Genitourinary: grossly normal external Musculoskeletal: no joint tenderness, no swelling Extremities: normal pulses, no calf tenderness, no clubbing, no cyanosis, no edema Skin: no bruising, no jaundice, no rash Neurological: alert, No focal deficit SEPSIS Sepsis Screen Date sepsis recognized/suspect: Jan 20, 2025 Time Sepsis recognized/suspect: 1031 Recent Procedure: No Respiratory Rate >20: No Heart Rate >90: Yes Temp<36 C (96.8 F) or >38.3 C: No SBP <90 or MAP <65 mmHG: No New Acute Mental Status Change: No Is the patient on CPAP, BIPAP,: No Physician Orders Urinalysis (01/20/25 11:02) Ct Ab Pel Wo Con-No Oral Or Iv (01/20/25 11:02) Heplock Iv (01/20/25 11:02) Admit (01/20/25 17:13) Code Status (01/20/25 17:13) Hydrocodone-Acet 5/325mg Tab ([place] 5/32 (01/20/25 17:15) Temazepam (Restoril) (01/20/25 17:15) Ondansetron Hcl (Zofran) (01/20/25 17:15) Docusate Sodium Capsule (Colace Capsule) (01/20/25 17:15) Enoxaparin Sodium (Lovenox) (01/21/25 10:00) Complete Blood Count (01/21/25 04:00) Comprehensive Metabolic Panel (01/21/25 04:00) Acetaminophen Tablet (Tylenol Tablet) (01/20/25 17:15) Clear Liq Diet (01/20/25 Dinner) Morphine Sulfate Injection (01/20/25 17:15) * Surgical Consult (01/20/25 ) Nm Hida Scan (01/20/25 17:13) Nitroglycerin Sublingual (Ntrostat Subli (01/20/25 17:15) Morphine Sulfate Injection (01/20/25 17:15) Stat Ekg For Chest Pain (01/20/25 17:13) Notify Md Of Changes From Base (01/20/25 17:13) Management Consultant For 24 Hours (01/20/25 17:13) Emergency Dysrhythmia Protocol (01/20/25 17:13) Rhythm Strips Once Every Shift (01/20/25 17:13) Oxygen By Nasal Cannula (01/20/25 17:13) Echo 2d Mode Cardiac Dop (01/20/25 17:17) Pantoprazole (Protonix) (01/21/25 10:00) Piperacillin-Tazob 3.375gm (Zosyn 3.375g (01/20/25 22:00) Vital Signs Date Time Temp Pulse Resp B/P (MAP) Pulse Ox O2 Delivery O2 Flow Rate FiO2 01/20/25 20:12 97.9 90 20 121/59 (79) 99 97.9 01/20/25 19:30 98.2 70 19 118/57 (77) 98.2 01/20/25 17:05 99.2 73 19 110/56 (74) 99 99.2 01/20/25 13:39 79 18 132/77 01/20/25 13:09 78 17 119/64 01/20/25 13:01 97.8 79 17 119/64 (82) 100 97.8 01/20/25 12:10 98 100 Room Air* 0 21 01/20/25 11:06 117 20 131/111 (118) 100 01/20/25 10:30 98.0 112 18 124/72 96 98.0 Laboratory Tests Test 01/20/25 11:10 White Blood Count 12.6 10^3/uL (4.4-10.8) H Medications Medications Dose Ordered Sig/Valerie Route Start Time Stop Time Status Last Admin Dose Admin Morphine Sulfate 4 mg ONCE ONCE IV 01/20/25 11:15 01/20/25 11:16 DC 01/20/25 13:09 Ondansetron HCl 4 mg ONCE ONCE IV 01/20/25 11:15 01/20/25 11:16 DC 01/20/25 11:58 Sodium Chloride 1,000 ml @ 1,000 mls/hr Q1H ONCE IVB 01/20/25 11:15 01/20/25 12:14 DC 01/20/25 11:15 Results Labs Test 01/20/25 13:19 01/20/25 12:52 01/20/25 11:10 Range/Units Urine Test Negative Negative Urine Opiates Screen Neg NEGATIVE Urine Fentanyl Screen Neg NEGATIVE Urine Barbiturates Screen Neg NEGATIVE Urine Phencyclidine Screen Neg NEGATIVE Urine Amphetamines Screen Pos NEGATIVE Urine Benzodiazepines Screen Neg NEGATIVE Urine Cocaine Screen Neg NEGATIVE Urine Cannabinoids Screen Pos NEGATIVE White Blood Count 12.6 H 4.4-10.8 10^3/uL Red Blood Count 4.93 4.0-5.20 10^6/uL Hemoglobin 9.5 L 12.2-16.2 g/dL Hematocrit 31.6 L 36.0-46.0 % Mean Corpuscular Volume 64.1 L 80.0-100.0 fL Mean Corpuscular Hemoglobin 19.2 L 28.0-32.0 pg Mean Corpuscular Hemoglobin Concent 30.0 L 32.0-36.0 g/dL Red Cell Distribution Width 19.6 H 11.8-14.3 % Platelet Count 669 H 140-450 10^3/uL Mean Platelet Volume 7.2 6.9-10.8 fL Neutrophils (%) (Auto) 74.4 37.0-80.0 % Lymphocytes (%) (Auto) 17.7 10.0-50.0 % Monocytes (%) (Auto) 6.4 0.0-12.0 % Eosinophils (%) (Auto) 0.8 0.0-7.0 % Basophils (%) (Auto) 0.7 0.0-2.0 % Neutrophils # (Auto) 9.4 H 1.6-8.6 10 ^3/uL Lymphocytes # (Auto) 2.2 0.4-5.4 10 ^3/uL Monocytes # (Auto) 0.8 0-1.3 10 ^3/uL Eosinophils # (Auto) 0.1 0-0.8 10 ^3/uL Basophils # (Auto) 0.1 0-0.2 10 ^3/uL Nucleated Red Blood Cells 0.1 % Platelet Estimate Increased Hypochromasia (manual) Moderate Microcytosis Moderate Sodium Level 137 136-145 mmol/L Potassium Level 3.6 3.5-5.1 mmol/L Chloride Level 103 98-107 mmol/L Carbon Dioxide Level 23 20-31 mmol/L Anion Gap 11 5-15 Blood Urea Nitrogen 13 9-23 mg/dL Creatinine 1.03 H 0.550-1.02 mg/dL Glomerular Filtration Rate Calc 70 >90 mL/min BUN/Creatinine Ratio 12.6 10.0-20.0 Serum Glucose 106 74-106 mg/dL Calcium Level 9.4 8.7-10.4 mg/dL Total Bilirubin 0.7 0.2-1.0 mg/dL Aspartate Amino Transferase (AST) 14 13-40 U/L Alanine Aminotransferase (ALT) < 9 7-40 U/L Alkaline Phosphatase 107 46-116 U/L Total Protein 8.4 H 5.7-8.2 g/dL Albumin 4.6 3.2-4.8 g/dL Lipase 32 12-53 U/L Plan 1. Intractable abdominal pain related to acute cholecystitis Monitor, surgical consult, IV abx, PRN pain meds, clear liquid diet 2. Methamphetamine abuse Monitor, substance abuse counseling, urine drug screen 3. Hx kidney stones Monitor, CT abdomen Plan discussed with: Patient, Other PATRIAFELICIAHARSHIL Martinez NP Jan 20, 2025 17:19
[2025-01-20 22:00] VITALS: BP 114/50; PULSE 78; RESP 18; TEMP 98.1; O2SAT 100
[2025-01-20] MEDS: HYDROcodone-ACET 5/325MG TAB PO PRN (22:00)
[2025-01-20 22:20] LABS: Urine Protein, UAD 1+ (Negative)
[2025-01-20 22:22] VITALS: PULSE 78; RESP 20; O2SAT 100
[2025-01-20 22:46] LABS: INR 1.01 (0.9-1.15); Partial Thromboplastin Time 24.4 SEC (24.5-34.5); Prothrombin Time 10.7 sec (9.3-11.8)
[2025-01-20] MEDS: PIPERACILLIN-TAZOB 3.375GM 100 ML IV SCH (23:42)
[2025-01-21] VITALS (8 sets, daily range): BP systolic 104–124; BP diastolic 50–90; PULSE 61–87; RESP 16–20; TEMP 97.7–98.5; O2SAT 94–100
[2025-01-21 03:24] LABS: Hematocrit 27.9 % (36.0-46.0)
[2025-01-21 03:26] LABS: Hemoglobin 8.3 g/dL (12.2-16.2); Mean Corpuscular Hemoglobin 19.4 pg (28.0-32.0); Mean Corpuscular Volume 65.3 fL (80.0-100.0); Nucleated Red Blood Cells % 0.0 %
[2025-01-21 03:44] LABS: Albumin 4.0 g/dL (3.2-4.8); Alkaline Phosphatase 90 U/L (46-116); Anion Gap 11 (5-15); BUN/Creatinine Ratio 17.5 (10.0-20.0); Blood Urea Nitrogen 17 mg/dL (9-23); Calcium 8.9 mg/dL (8.7-10.4); Carbon Dioxide 25 mmol/L (20-31); Chloride 104 mmol/L (98-107); Glucose 96 mg/dL (74-106); Potassium 4.0 mmol/L (3.5-5.1); Sodium 140 mmol/L (136-145); Total Protein 7.1 g/dL (5.7-8.2)
[2025-01-21 03:45] LABS: Bilirubin, Total 0.7 mg/dL (0.2-1.0)
[2025-01-21 03:58] LABS: Alanine Aminotransferase < 9 U/L (7-40)
--- NOTE | 2025-01-21 08:09 | DVH ---
CLINICAL INFORMATION: Rule out acute cholecystitis. No other clinical information provided. TECHNIQUE: 6 mCi of Choletec were administered intravenously. Images of the upper abdomen were obtained at multiple intervals up to a total time of 60 minutes. COMPARISON: CT dated 01/20/2025. FINDINGS: There is prompt gallbladder visualization. There is prompt excretion of activity from the biliary ductal system into the small bowel. There is no evidence of acute cholecystitis. IMPRESSION: No scintigraphic evidence of acute cholecystitis.
--- NOTE | 2025-01-21 08:57 | DVH ---
INDICATION: r.o cholecystitis TECHNIQUE: Multiple real-time sonographic images were obtained of the right upper quadrant. COMPARISON: None FINDINGS: The liver demonstrates heterogeneous echotexture without focal mass lesions. The liver measures 18 cm. There is no intrahepatic or extrahepatic ductal dilatation. The common duct measures 0.5 mm. Gallstones are noted . The gallbladder wall measures 0.3mm and is within normal limits. The right kidney measures 12 cm. The right kidney is normal in contour, size, and shape. The echogenicity is normal. There is no hydronephrosis. The pancreas is not well visualized due to overlying bowel gas. IMPRESSION: Gallstones. Hepatic steatosis. Hepatomegaly
[2025-01-21] MEDS: PANTOPRAZOLE 40 MG/10 ML VIAL INJ IV SCH (09:14)
[2025-01-21] MEDS: ENOXAPARIN SOD 40 MG/0.4 ML SYRINGE SC SCH (09:20)
--- NOTE | 2025-01-21 09:55 | DVHINCON2 ---
Consultation - Surgical Date Seen: Jan 21, 2025 Referring Physician Reason for Consultation cholelithiasis History of Present Illness History of Present Illness 39 year old female presented to [facility] with complaint of abdominal pain. patient reports she has had gallstones for the past 4 years . She currently denies any pain . Denies any nausea Past Medical/Surgical History Past Medical/Surgical History gallstones Family and Social History Family and Social History drug use : methamphetamine Allergies and medications Allergies: Coded Allergies: NO KNOWN ALLERGIES (Unverified , 05/05/23) Home Meds Active Scripts Ibuprofen Micronized (Ibuprofen) 600 Mg Tab, 600 MG PO Q6HPRN PRN for 5 Days, #20 TAB Prov:BRITTNI CRANE BOTTOM FINISHER 07/18/24 Review of systems Review of Systems: HEENT:Normal, CVS:Normal, RESPIRATORY:Normal, GI:Normal, :Normal, MSK:Normal, NEURO:Normal Examination Vital signs Vital Signs Date Time Temp Pulse Resp B/P (MAP) Pulse Ox O2 Delivery O2 Flow Rate FiO2 01/21/25 09:29 98.0 61 16 104/55 (71) 94 98.0 01/21/25 08:00 Room Air* 0 21 Medications Current Medications Medications (Trade) Dose Ordered Sig/Valerie Route PRN Reason Start Time Stop Time Status Last Admin Acetaminophen/ Hydrocodone Bitart ([place] 5/325MG Tab) 1 tab Q4HP PRN PO MODERATE PAIN (4-6 PAIN SCALE) 01/20/25 17:15 01/20/25 22:00 Temazepam (Restoril) 15 mg QHSP PRN PO FOR INSOMNIA 01/20/25 17:15 Ondansetron HCl (Zofran) 4 mg Q4HP PRN IV NAUSEA / VOMITING 01/20/25 17:15 Docusate Sodium (Colace Capsule) 100 mg BIDPRN PRN PO FOR CONSTIPATION 01/20/25 17:15 Enoxaparin Sodium (Lovenox) 40 mg DAILY SC 01/21/25 10:00 Acetaminophen (Tylenol Tablet) 650 mg Q6HP PRN PO PAIN SCALE 1-3 OR TEMP>100.4 01/20/25 17:15 Morphine Sulfate 2 mg Q4HPRN PRN IV SEVERE PAIN (7-10 PAIN SCALE) 01/20/25 17:15 Nitroglycerin (Ntrostat Sublingual) 0.4 mg Q5MINP PRN SL FOR CHEST PAIN 01/20/25 17:15 Morphine Sulfate 2 mg Q30M PRN IV FOR CHEST PAIN 01/20/25 17:15 Pantoprazole Sodium (Protonix) 40 mg DAILY IV 01/21/25 10:00 01/21/25 09:14 Piperacillin Sod/ Tazobactam Sod 100 ml @ 100 mls/hr TID IV 01/20/25 22:00 01/21/25 05:31 Laboratory Labs Test 01/21/25 03:04 01/20/25 22:15 01/20/25 21:28 01/20/25 12:52 Range/Units White Blood Count 11.0 H 4.4-10.8 10^3/uL Red Blood Count 4.27 4.0-5.20 10^6/uL Hemoglobin 8.3 L 12.2-16.2 g/dL Hematocrit 27.9 #L 36.0-46.0 % Mean Corpuscular Volume 65.3 L 80.0-100.0 fL Mean Corpuscular Hemoglobin 19.4 L 28.0-32.0 pg Mean Corpuscular Hemoglobin Concent 29.7 L 32.0-36.0 g/dL Red Cell Distribution Width 19.9 H 11.8-14.3 % Platelet Count 539 H 140-450 10^3/uL Mean Platelet Volume 7.0 6.9-10.8 fL Neutrophils (%) (Auto) 68.2 37.0-80.0 % Lymphocytes (%) (Auto) 21.3 10.0-50.0 % Monocytes (%) (Auto) 7.7 0.0-12.0 % Eosinophils (%) (Auto) 2.1 0.0-7.0 % Basophils (%) (Auto) 0.7 0.0-2.0 % Neutrophils # (Auto) 7.5 1.6-8.6 10 ^3/uL Lymphocytes # (Auto) 2.3 0.4-5.4 10 ^3/uL Monocytes # (Auto) 0.8 0-1.3 10 ^3/uL Eosinophils # (Auto) 0.2 0-0.8 10 ^3/uL Basophils # (Auto) 0.1 0-0.2 10 ^3/uL Nucleated Red Blood Cells 0.0 % Sodium Level 140 136-145 mmol/L Potassium Level 4.0 3.5-5.1 mmol/L Chloride Level 104 98-107 mmol/L Carbon Dioxide Level 25 20-31 mmol/L Anion Gap 11 5-15 Blood Urea Nitrogen 17 9-23 mg/dL Creatinine 0.97 0.550-1.02 mg/dL Glomerular Filtration Rate Calc 76 >90 mL/min BUN/Creatinine Ratio 17.5 10.0-20.0 Serum Glucose 96 74-106 mg/dL Calcium Level 8.9 8.7-10.4 mg/dL Total Bilirubin 0.7 0.2-1.0 mg/dL Aspartate Amino Transferase (AST) 12 L 13-40 U/L Alanine Aminotransferase (ALT) < 9 7-40 U/L Alkaline Phosphatase 90 46-116 U/L Total Protein 7.1 5.7-8.2 g/dL Albumin 4.0 3.2-4.8 g/dL Prothrombin Time 10.7 9.3-11.8 sec Prothrombin Time INR 1.01 0.9-1.15 Activated Partial Thromboplast Time 24.4 L 24.5-34.5 SEC Lactic Acid Level 1.3 0.4-2.0 mmol/L Urine Color Yellow Yellow Urine Clarity Turbid H Clear Urine pH 5.0 5.0-9.0 Urine Specific [place] 1.028 1.001-1.035 Urine Protein 1+ H Negative Urine Ketones Trace Negative Urine Blood 1+ H Negative /uL Urine Nitrite Negative Negative Urine Bilirubin Negative Negative Urine Urobilinogen Normal Negative mg/dL Urine Leukocyte Esterase 1+ Negative /uL Urine RBC 4 0 - 4 /hpf Urine Microscopic WBC 38 H 0-5 /HPF Urine Squamous Epithelial Cells Mod <5 /hpf Urine Bacteria Few H None Seen /hpf Urine Hyaline Casts Many 0 - 2 /lpf Urine Mucus Few None Seen Urine Glucose Normal Normal mg/dL Urine Test Negative Negative Urine Opiates Screen Neg NEGATIVE Urine Fentanyl Screen Neg NEGATIVE Urine Barbiturates Screen Neg NEGATIVE Urine Phencyclidine Screen Neg NEGATIVE Urine Amphetamines Screen Pos NEGATIVE Urine Benzodiazepines Screen Neg NEGATIVE Urine Cocaine Screen Neg NEGATIVE Urine Cannabinoids Screen Pos NEGATIVE Test 01/20/25 11:10 Range/Units Platelet Estimate Increased Hypochromasia (manual) Moderate Microcytosis Moderate Lipase 32 12-53 U/L Examination: GENERAL:Normal, HEENT:Normal, NECK:Normal, LUNGS:Normal, CVS:Nor mal, ABDOMEN:Normal, MSK:Normal, SKIN:Normal Problem List/Assessment/Plan Problems: (1) Cholelithiasis Assessment and Plan abdomen soft non distended, non tender patient states she feels alot better , she was diagnosed with gallstones 4 years ago denies pain and nausea , Patient States she would like to go home Plan: no surgical intervention at this time cholecystectomy explained to patient non emergent and can be performed electively procedure explained to patient all questions answered advised patient to follow up in surgery clinic for elective surgery if she dec ides to have her gallbladder removed in the future Plan discussed with Plan discussed with: Patient, Other (Dr. park ) Visit Coding Surgery Date of Service if different f: Jan 21, 2025 Billing Provider: ARNIE PARK MD Surgery Visit Codes: [id number] INP/OBS CARE(HIGH) TELMA SALAZAR NP Jan 21, 2025 09:55
[2025-01-21 10:08] LABS: Hepatitis B Surface Antigen Negative (Negative)
[2025-01-21 10:32] LABS: Hepatitis C Antibody Negative (Negative)
[2025-01-21] MEDS ORDERED: MORPHINE SULFATE 4 MG/ML SYR/VIAL IV PRN ×2 (14:30)
--- NOTE | 2025-01-21 15:59 | DVHPN2 ---
Progress Note Date Seen: Jan 21, 2025 Medical Necessity Reason Pt with a Central, PICC or Fol: No Subjective Review of Systems: CVS:Normal, RESPIRATORY:Normal, GI:Abnormal (abdominal pain), NEURO:Normal Objective vital signs Vital Sign Date Time Temp Pulse Resp B/P (MAP) Pulse Ox O2 Delivery O2 Flow Rate FiO2 01/21/25 13:00 98.3 75 16 114/54 (74) 100 98.3 01/21/25 08:00 Room Air* 0 21 Total Intake and Output 01/20/25 01/20/25 01/21/25 15:00 23:00 07:00 Intake Total 1000 ml 100 ml Balance 1000 ml 100 ml medications Current Medications Medications Dose Ordered Sig/Valerie Route Start Time Stop Time Status Last Admin Dose Admin Acetaminophen/ Hydrocodone Bitart 1 tab Q4HP PRN PO 01/20/25 17:15 01/20/25 22:00 1 TAB Temazepam 15 mg QHSP PRN PO 01/20/25 17:15 Ondansetron HCl 4 mg Q4HP PRN IV 01/20/25 17:15 Docusate Sodium 100 mg BIDPRN PRN PO 01/20/25 17:15 Enoxaparin Sodium 40 mg DAILY SC 01/21/25 10:00 Acetaminophen 650 mg Q6HP PRN PO 01/20/25 17:15 Nitroglycerin 0.4 mg Q5MINP PRN SL 01/20/25 17:15 Pantoprazole Sodium 40 mg DAILY IV 01/21/25 10:00 01/21/25 09:14 40 MG Piperacillin Sod/ Tazobactam Sod 100 ml @ 100 mls/hr TID IV 01/20/25 22:00 01/21/25 13:58 100 MLS/HR Morphine Sulfate 2 mg Q4HPRN PRN IV 01/21/25 14:30 Morphine Sulfate 2 mg Q30M PRN IV 01/21/25 14:30 Examination: GENERAL:Normal, LUNGS:Normal, ABDOMEN:Abnormal (tenderness upon palpation), SKIN:Normal, NEURO:Normal laboratory and microbiology Laboratory Tests 01/21/25 03:04 Test 01/21/25 03:04 Range/Units Serum Glucose 96 74-106 mg/dL Labs and/or images reviewed: Labs reviewed by me, Image(s) reviewed by me Problem List/Assessment/Plan Problem List/Assessment/Plan Ms. Ortiz was admitted for intractable abdominal pain related to possible acute cholecystitis. She continues to report abdominal pain despite being evaluated by general surgery, who ruled out cholecystitis and recommended outpatient follow-up for elective gallbladder removal. The patient is currently on clear liquids and remains hospitalized for monitoring. Intractable Abdominal Pain Assessment: Patient admitted for intractable abdominal pain initially concerning for acute cholecystitis. General surgery evaluation ruled out cholecystitis. Gallbladder ultrasound revealed gallstones without evidence of acute inflammation. Patient continues to report ongoing abdominal pain despite clear liquid diet. Plan: - Continue clear liquid diet - Monitor symptoms - Possible discharge tomorrow - Follow up as outpatient for elective gallbladder removal Anemia, Unspecified Assessment: Hemoglobin level is 8.3, indicating anemia of unspecified etiology requiring further evaluation. Plan: - Continue to monitor hemoglobin levels - Obtain iron panel Elevated White Blood Cell Count Assessment: White blood cell count is 11.0, possibly due to inflammation. Plan: - Monitor white blood cell count Morbid Obesity Assessment: Patient has morbid obesity requiring ongoing monitoring. Plan: - Monitor Plan discussed with: Patient My Orders My Orders Orders - DONAVAN BROWN Procedure Category Date Status Time Gallbladder US 01/21/25 Resulted 06:58 Iron LAB 01/21/25 Transmitted 15:56 Iron Panel LAB 01/21/25 Transmitted 15:56 Date of Service: Jan 21, 2025 Billing Provider: MARKUS ZENG MD Common Visit Codes: [id number] INP/OBS CARE (MOD) DONAVAN BROWN Jan 21, 2025 15:59
[2025-01-21 16:21] LABS: Total Iron Binding Capacity 417.0 ug/dL (250-425)
[2025-01-21 16:31] LABS: Iron 31.0 ug/dL (50-170)
[2025-01-22 01:00] VITALS: BP 109/82; PULSE 79; RESP 20; TEMP 98.1; O2SAT 96
[2025-01-22 05:00] VITALS: BP 104/66; PULSE 71; RESP 20; TEMP 98; O2SAT 99
[2025-01-22 07:56] VITALS: BP 120/77; PULSE 63; RESP 20; TEMP 98.1; O2SAT 98
[2025-01-22 08:00] VITALS: PULSE 63; PULSE 73; RESP 20
[2025-01-22] MEDS ORDERED: FERR-7 PO (09:27)
--- NOTE | 2025-01-22 09:28 | DVHDS2 ---
Discharge Summary Date of Admission Jan 20, 2025 at 17:13 Date of Discharge: Jan 22, 2025 Admitting Diagnosis acute abdominal pain Labs/Diagnostic Data: Laboratory Results Test 01/21/25 03:04 01/20/25 22:15 01/20/25 21:28 01/20/25 12:52 White Blood Count 11.0 10^3/uL (4.4-10.8) Red Blood Count 4.27 10^6/uL (4.0-5.20) Hemoglobin 8.3 g/dL (12.2-16.2) Hematocrit 27.9 % (36.0-46.0) Mean Corpuscular Volume 65.3 fL (80.0-100.0) Mean Corpuscular Hemoglobin 19.4 pg (28.0-32.0) Mean Corpuscular Hemoglobin Concent 29.7 g/dL (32.0-36.0) Red Cell Distribution Width 19.9 % (11.8-14.3) Platelet Count 539 10^3/uL (140-450) Mean Platelet Volume 7.0 fL (6.9-10.8) Neutrophils (%) (Auto) 68.2 % (37.0-80.0) Lymphocytes (%) (Auto) 21.3 % (10.0-50.0) Monocytes (%) (Auto) 7.7 % (0.0-12.0) Eosinophils (%) (Auto) 2.1 % (0.0-7.0) Basophils (%) (Auto) 0.7 % (0.0-2.0) Neutrophils # (Auto) 7.5 10 ^3/uL (1.6-8.6) Lymphocytes # (Auto) 2.3 10 ^3/uL (0.4-5.4) Monocytes # (Auto) 0.8 10 ^3/uL (0-1.3) Eosinophils # (Auto) 0.2 10 ^3/uL (0-0.8) Basophils # (Auto) 0.1 10 ^3/uL (0-0.2) Nucleated Red Blood Cells 0.0 % Sodium Level 140 mmol/L (136-145) Potassium Level 4.0 mmol/L (3.5-5.1) Chloride Level 104 mmol/L (98-107) Carbon Dioxide Level 25 mmol/L (20-31) Anion Gap 11 (5-15) Blood Urea Nitrogen 17 mg/dL (9-23) Creatinine 0.97 mg/dL (0.550-1.02) Glomerular Filtration Rate Calc 76 mL/min (>90) BUN/Creatinine Ratio 17.5 (10.0-20.0) Serum Glucose 96 mg/dL (74-106) Calcium Level 8.9 mg/dL (8.7-10.4) Iron Level 31 ug/dL (50-170) Total Iron Binding Capacity 417 ug/dL (250-425) Percent Iron Saturation 7.4 % (15-50) Total Bilirubin 0.7 mg/dL (0.2-1.0) Aspartate Amino Transferase (AST) 12 U/L (13-40) Alanine Aminotransferase (ALT) < 9 U/L (7-40) Alkaline Phosphatase 90 U/L (46-116) Total Protein 7.1 g/dL (5.7-8.2) Albumin 4.0 g/dL (3.2-4.8) Prothrombin Time 10.7 sec (9.3-11.8) Prothrombin Time INR 1.01 (0.9-1.15) Activated Partial Thromboplast Time 24.4 SEC (24.5-34.5) Lactic Acid Level 1.3 mmol/L (0.4-2.0) Hepatitis B Surface Antigen Negative (Negative) Hepatitis C Antibody Negative (Negative) Urine Color Yellow (Yellow) Urine Clarity Turbid (Clear) Urine pH 5.0 (5.0-9.0) Urine Specific [place] 1.028 (1.001-1.035) Urine Protein 1+ (Negative) Urine Ketones Trace (Negative) Urine Blood 1+ /uL (Negative) Urine Nitrite Negative (Negative) Urine Bilirubin Negative (Negative) Urine Urobilinogen Normal mg/dL (Negative) Urine Leukocyte Esterase 1+ /uL (Negative) Urine RBC 4 /hpf (0 - 4) Urine Microscopic WBC 38 /HPF (0-5) Urine Squamous Epithelial Cells Mod /hpf (<5) Urine Bacteria Few /hpf (None Seen) Urine Hyaline Casts Many /lpf (0 - 2) Urine Mucus Few (None Seen) Urine Glucose Normal mg/dL (Normal) Urine Test Negative (Negative) Urine Opiates Screen Neg (NEGATIVE) Urine Fentanyl Screen Neg (NEGATIVE) Urine Barbiturates Screen Neg (NEGATIVE) Urine Phencyclidine Screen Neg (NEGATIVE) Urine Amphetamines Screen Pos (NEGATIVE) Urine Benzodiazepines Screen Neg (NEGATIVE) Urine Cocaine Screen Neg (NEGATIVE) Urine Cannabinoids Screen Pos (NEGATIVE) Test 01/20/25 11:10 Platelet Estimate Increased Hypochromasia (manual) Moderate Microcytosis Moderate Lipase 32 U/L (12-53) Other Laboratory Tests 01/21/25 03:04 Brief Hx & Hospital Course: Hospital Course The patient presented with severe abdominal pain and was admitted for evaluation. Initial concern was for acute cholecystitis; however, both General Surgery and abdominal ultrasound findings were negative for cholecystitis. General Surgery recommended outpatient follow-up for elective cholecystectomy if symptoms persist. The patient was placed on a clear liquid diet, which led to improvement in abdominal pain. Symptoms are most consistent with biliary colic. Laboratory evaluation revealed iron deficiency anemia, and the patient received IV iron therapy during hospitalization. She tolerated the infusions well and will continue oral iron at discharge. The patient was also diagnosed with acute cystitis with hematuria, for which she was started on antibiotic therapy during admission. She remained hemodynamically stable throughout her stay, with gradual improvement in symptoms. Physical Exam on Discharge General: Alert, oriented, no acute distress Abdomen: Soft, mild RUQ tenderness; no guarding or rebound Cardiac: Regular rate and rhythm Lungs: Clear to auscultation Extremities: No edema Neuro: Non-focal Discharge Medications PO Iron 325 mg Take 1 tablet daily. Ciprofloxacin 500 mg Take 1 tablet twice daily for 7 days for acute cystitis with hematuria. Continue other home medications as prescribed. Diet Continue clear/full liquid diet for 1 week, then advance as tolerated. Activity As tolerated. Follow-Up Recommendations Primary Care Provider: Follow up within 1 week. General Surgery: Outpatient consult for elective cholecystectomy. Condition at Discharge: Fair Final Diagnosis/Problems List Intractable Abdominal Pain likley from bilary colic Assessment: Patient admitted for intractable abdominal pain initially concerning for acute cholecystitis. General surgery evaluation ruled out cholecystitis. Gallbladder ultrasound revealed gallstones without evidence of acute inflammation. Patient continues to report ongoing abdominal pain despite clear liquid diet. Plan: - Continue clear liquid diet - Monitor symptoms - Possible discharge tomorrow - Follow up as outpatient for elective gallbladder removal Anemia, Unspecified Assessment: Hemoglobin level is 8.3, indicating anemia of unspecified etiology requiring further evaluation. Plan: - Continue to monitor hemoglobin levels - Obtain iron panel Elevated White Blood Cell Count Assessment: White blood cell count is 11.0, possibly due to inflammation. Plan: - Monitor white blood cell count Morbid Obesity acute cystitis with hematuria Discharge Disposition: Home Discharge Instruct/Medications Diet: Cardiac 2g Na,low cholest Diet comment: regular Activity: No Restrictions, As Tolerated Follow Up/Referral: PCP within 1 week Scheduled Ferrous Sulfate (Iron), 325 MG PO DAILY Scheduled PRN Ibuprofen Micronized (Ibuprofen), 600 MG PO Q6HPRN PRN Discharge Statement: "Patient was advised to return to the ER or call 911 if any headaches, dizziness, shortness of breath, chest pain, abdominal pain, bleeding, fevers, or worsening of medical condition. Patient was counseled about treatment plan, medications, possible side effects, patientverbalized understanding. All questions were answered to the best of my ability. This discharge took greater then 30 minutes in planning, reviewing documentation, counseling the patient, and discussing with other team members." ASSESSMENT ASSESSMENT Assessment Intractable Abdominal Pain likley from bilary colic Assessment: Patient admitted for intractable abdominal pain initially concerning for acute cholecystitis. General surgery evaluation ruled out cholecystitis. Gallbladder ultrasound revealed gallstones without evidence of acute inflammation. Patient continues to report ongoing abdominal pain despite clear liquid diet. Plan: - Continue clear liquid diet - Monitor symptoms - Possible discharge tomorrow - Follow up as outpatient for elective gallbladder removal Anemia, Unspecified Assessment: Hemoglobin level is 8.3, indicating anemia of unspecified etiology requiring further evaluation. Plan: - Continue to monitor hemoglobin levels - Obtain iron panel Elevated White Blood Cell Count Assessment: White blood cell count is 11.0, possibly due to inflammation. Plan: - Monitor white blood cell count Morbid Obesity DONAVAN BROWN Jan 22, 2025 09:28
[2025-01-22 10:24] LABS: Hemoglobin 7.9 g/dL (12.2-16.2)
[2025-01-22 10:25] LABS: Hematocrit 26.7 % (36.0-46.0); Mean Corpuscular Hemoglobin 19.5 pg (28.0-32.0); Mean Corpuscular Volume 65.7 fL (80.0-100.0); Nucleated Red Blood Cells % 0.0 %
[2025-01-22 11:06] VITALS: BP 120/77; PULSE 63; RESP 20; TEMP 98.1; O2SAT 98
[2025-01-22] MEDS ORDERED: CIPR500T4 PO (11:08)
[2025-01-22] MEDS ORDERED: PANT40TA2 PO (11:08)
[2025-01-22] MEDS ORDERED: IRON SUCROSE COMPLEX 110 ML IV SCH (12:00)
== END 2025-01-22 11:45 | disposition home or self-care (01) ==
LOC: ER 10:27 → OVERFLOW 17:13 → EAST 01-21 14:13
PROVIDERS: ADMIT Nurse Practitioner; ATTEND Nurse Practitioner
DX: K80.70 Calculus of gallbladder and bile duct without cholecystitis without obstruction (principal); D50.9 Iron deficiency anemia, unspecified; D72.829 Elevated white blood cell count, unspecified; F15.10 Other stimulant abuse, uncomplicated; E66.01 Morbid (severe) obesity due to excess calories; N30.01 Acute cystitis with hematuria; Z87.442 Personal history of urinary calculi; Z83.3 Family history of diabetes mellitus; Z82.49 Family history of ischemic heart disease and other diseases of the circulatory system; Z68.42 Body mass index [BMI] 45.0-49.9, adult
CPT/HCPCS: 36415; 74176; 76705; 78226; 80053; 80307; 81001; 81025; 83540; 83550; 83605; 83690; 85025; 85610; 85730; 86803; 86850; 86900; 86901; 87340; 99291; G0378; J2405; J2470; J2543